=== PATIENT | male | born 1940 | race Caucasian/White ===

== ENCOUNTER → 2023-09-18 12:34 | Outpatient (CLI) | payer MEDICARE, SELFPAY ==
--- NOTE | 2023-09-18 12:42 | DI.ECHO.S_ITS ---
[facility] +---------+ [facility] : : [address] : : [place] : : [id number] : : Phone: [phone] Echocardiogram Report + + :Name: VALENTINE SAAB Study Date: 09/18/2023 Height: 73 in : :Hospital ReadingLocation: Weight: 177 lb : : Gender: Male BSA: 2.0 m2 : :: 1940 Age: 83 yrs BP: 126/75 mmHg: :Reason For Study: ATHEROSCLEROTIC HEART DISEASE : :Ordering Physician: JORDYN BOWENS Performed By: Huma Chavis : :Referring: JORDYN BOWENS : + + Interpretation Summary 1. The left ventricular contractility is normal. Estimated ejection fraction is greater than 55%. There is a small area of hypokinesis in the distal inferior segment. Grade 1 diastolic dysfunction present. No LVH. 2. The right ventricular contractility is normal. 3. Mild left atrial enlargement present. All other cardiac chambers are of normal size. 4. There is moderate fibrocalcific changes noted in the noncoronary cusp of the aortic valve with no significant insufficiency nor stenosis present. 5. There is mild tricuspid regurgitation present. Estimated pulmonary systolic artery pressure is approximately 41 to 45 mmHg. 6. Mild pulmonic insufficiency present 7. No obvious intracardiac shunts noted. 8. No obvious intracardiac masses nor thrombi appreciated. 9. No hemodynamically significant pericardial effusion identified. Conclusion: Normal biventricular systolic function with grade 1 diastolic dysfunction. Mild pulmonary hypertension present most likely due to diastolic dysfunction. Procedure: A two-dimensional transthoracic echocardiogram with color flow and Doppler was performed. The study quality was technically adequate. There is no prior echocardiogram noted for this patient. The patient was in sinus bradycardia with heart rates between 51-55 bpm during the exam. Left Ventricle: The left ventricle is normal in size and wall thickness. There are regional wall motion abnormalities as specified. Diastolic parameters suggest a relaxation abnormality of the left ventricle, consistent with probable normal filling pressures. Right Ventricle: The right ventricle is normal in size and function. Atria: The left atrium is mildly dilated. Right atrial size is normal. There is no Doppler evidence for an interatrial shunt. Mitral Valve: The mitral valve leaflets appear mildly thickened, but open well. There is trace mitral regurgitation. Aortic Valve: There is discrete nodular thickening of the non- coronary cusp. The aortic valve is mildly calcified. There is mild aortic valve sclerosis. There is no aortic valve stenosis. No aortic regurgitation is present. Tricuspid Valve: The tricuspid valve leaflets are thin and pliable. There is mild tricuspid regurgitation. Right ventricular systolic pressure is estimated to be 31 mmHg plus the clinically estimated CVP which cannot be estimated on this exam. Pulmonic Valve: The pulmonic valve leaflets are thin and pliable; valve motion is normal. There is mild pulmonic regurgitation. Great Vessels: The aortic root is normal size. The ascending aorta is normal in size. The inferior vena cava was not well visualized. Pericardium/ Pleura There is no pericardial effusion. There is no pleural effusion. MMode/2D Measurements & Calculations LVIDd: 5.1 cm LVOT diam: 2.1 cm LVIDs: 3.8 cm Ao root diam: 3.7 cm FS: 26.0 % asc Aorta Diam: 3.3 cm IVSd: 0.85 cm Ao Arch Diam (Prox Trans): 2.7 cm LVPWd: 0.89 cm LV rm. diameter/BSA (cm/m^2): 2.5 LV sys. diameter/BSA (cm/m^2): 1.9 LA A2 area: 22.9 cm2 RA long axis: 5.2 cm LA A4 area: 18.2 cm2 RA area: 15.4 cm2 LA length (vol): 5.1 cm RA vol: 38.5 ml LA vol: 69.6 ml RA : 18.8 ml/m2 LA vol index: 34.1 ml/m2 RVD1 (basal): 4.0 cm TAPSE: 1.9 cm Doppler Measurements & Calculations Ao V2 max: 142.2 cm/sec LVOT Max Cheo: 72.6 cm/sec Ao V2 mean: 101.6 cm/sec LV V1 max P.1 mmHg Ao max P.1 mmHg LV V1 VTI: 18.5 cm Ao mean P.5 mmHg REGLA(I,D): 2.2 cm2 Ao V2 VTI: 30.2 cm REGLA(V,D): 1.8 cm2 sev ratio: 0.61 REGLA indexed to BSA (cm^2/m^2): 1.1 MV E max cheo: 46.9 cm/sec TR max cheo: 280.1 cm/sec MV A max cheo: 56.8 cm/sec TR max P.4 mmHg MV E/A: 0.83 PA V2 max: 98.0 cm/sec Med Peak E' Cheo: 5.7 cm/sec PA V2 mean: 68.7 cm/sec E/E' med: 8.3 PA mean P.1 mmHg Lat Peak E' Cheo: 7.4 cm/sec PA pr(Accel): 36.2 mmHg E/E' lat: 6.4 E/e' average: 7.3 MV dec time: 0.48 sec SV(NICOLEOT): 65.3 ml Reading Physician:
== END ==
PROVIDERS: Referring Provider Internal Medicine; Visit Provider Internal Medicine
DX: I25.10 Atherosclerotic heart disease of native coronary artery without angina pectoris (principal); I08.2 Rheumatic disorders of both aortic and tricuspid valves; I27.20 Pulmonary hypertension, unspecified
CPT/HCPCS: 93306

== ENCOUNTER 2024-10-07 15:42 | Emergency (ER) | payer MEDICARE, SELFPAY ==
[2024-10-07] VITALS (25 sets, daily range): BP systolic 114–199; BP diastolic 68–95; PULSE 32–75; RESP 18–24; TEMP 36.6; O2SAT 95–100
--- NOTE | 2024-10-07 15:50 | EKG_ITS ---
[facility] [id number] [place] [id number] Test Date: 2024-10-07 Pat Name: Lewis Pearl Department: Room: Gender: Male [employer] N[employer]: : 1940 Requested By: Order Number: [id number] Reading MD: Herb Sanchez MD Measurements Intervals [place] Rate: 59 P: 40 MT: 140 QRS: -47 QRSD: 108 T: 46 QT: 450 QTc: 445 Interpretive Statements Sinus bradycardia with frequent premature ventricular complexes in a pattern of bigeminy Left anterior fascicular block Minimal voltage criteria for LVH, may be normal variant ( R in aVL ) Cannot rule out Anterior infarct , age undetermined NO PRIOR TRACING Electronically Signed On 10-07-2024 16:51:45 PDT by Herb Sanchez MD
--- NOTE | 2024-10-07 15:50 | DI.CT.S_ITS ---
PROCEDURE: CT ANGIO HEAD AND NECK INDICATIONS: Right-sided weakness TECHNIQUE: After the administration of intravenous contrast, 1 mm thick sections acquired from the aortic arch through the [place] of [place]. 3-dimensional pzdwymx-biyqnuqqq-uphjbpwhlr (MIP) and/or volume rendering reformats were acquired of the central intracranial vasculature and neck separately. For radiation dose reduction, the following was used: automated exposure control, adjustment of mA and/or kV according to patient size. COMPARISON: [facility], CT, CT STROKE, 10/07/2024, 15:53. FINDINGS: Image quality: Diagnostic. Cerebral CT Angiogram: Internal carotid arteries: No acute findings. Intracranial ICA are patent with no significant stenosis. No occlusion. No aneurysm. Anterior cerebral arteries: Unremarkable. No significant stenosis. No occlusion. No aneurysm. Middle cerebral arteries: Unremarkable. No significant stenosis. No occlusion. No aneurysm. Posterior cerebral arteries: Unremarkable. No significant stenosis. No occlusion. No aneurysm. Basilar artery: Unremarkable. No significant stenosis. No occlusion. No aneurysm. Vertebral arteries: Unremarkable as visualized. Dural venous sinuses: Unremarkable given phase of enhancement. Other: Arterial phase appearance of the brain parenchyma is unremarkable. Neck CT Angiogram: Internal carotid arteries: Approximately 50% proximal left internal carotid artery stenosis secondary to a combination of hard and soft plaque. Less than 50% proximal right internal carotid artery stenosis secondary to hard plaque. Common carotid arteries: Unremarkable. No significant stenosis. No dissection or occlusion. External carotid arteries: Unremarkable. No occlusion. Vertebral arteries: Unremarkable. No significant stenosis. No dissection or occlusion. Aortic Arch and Mediastinum: Partially visualized aortic arch unremarkable without evidence of aneurysm. Origins of the great vessels unremarkable. Other: Arterial phase soft tissues of the neck and chest are unremarkable. IMPRESSION: No significant intracranial arterial abnormality is seen. Approximately 50% proximal left internal carotid artery stenosis secondary to a combination of hard and soft plaque. Any quantitative measurements of stenosis were performed using NASCET criteria. Dictated by: Eric Cameron M.D. on 10/07/2024 at 16:27 Approved by: Eric Cameron M.D. on 10/07/2024 at 16:30
--- NOTE | 2024-10-07 15:50 | DI.CT.S_ITS ---
PROCEDURE: CT STROKE INDICATIONS: Right-sided weakness TECHNIQUE: Noncontrast 4.5 mm thick angled axial sections acquired from the foramen magnum to the vertex, with coronal reformats. For radiation dose reduction, the following was used: automated exposure control, adjustment of mA and/or kV according to patient size. COMPARISON: None. FINDINGS: Image quality: Diagnostic. CSF spaces: Basal cisterns are patent. No extra-axial fluid collections. The ventricles are symmetric in size and shape. Brain: No intracranial bleeds or mass effect. There is cerebral volume loss, with resultant ventricular and sulcal prominence. There are periventricular and deep white matter chronic small vessel ischemic changes. There is intracranial internal carotid artery atherosclerosis. Skull and face: Calvarium and visualized facial bones appear intact, without suspicious lesions. Sinuses: Visualized sinuses and mastoids are clear. IMPRESSION: No acute intracranial pathology. Comment: Findings were discussed with Dr. Wu on 10/07/2024 at 1612 hours This study fulfills neurological imaging criteria for inclusion or exclusion of acute stroke therapies based on available published neurological guidelines. Dictated by: Eric Cameron M.D. on 10/07/2024 at 16:10 Approved by: Eric Cameron M.D. on 10/07/2024 at 16:12
--- NOTE | 2024-10-07 16:04 | ED.NEUROSD ---
HPI - Neuro Symptoms/Deficit General Chief Complaint: Neuro Symptoms/Deficit Stated Complaint: POSSIBLE STROKE Time Seen by Provider: 10/07/24 15:49 Source: patient and family Mode of arrival: Wheelchair History of Present Illness HPI Narrative: Patient brought in by from home for slurred speech right-sided weakness right facial droop. Last well known 3:15 p.m., less than 1 hour ago. Patient denies any headache. Patient is awake alert oriented x4. Patient does have right facial droop and right arm weakness. Patient was working in the [employer] prior to arrival. On Anticoagulants: No Related Data Allergies Allergy/AdvReac Type Severity Reaction Status Date / Time No Known Drug Allergies Allergy Verified 10/07/24 16:04 Review of Systems Review of Systems Narrative: GENERAL: Negative chills, fatigue, malaise, fever, sweats. HEENT: Negative sinus pain, ear pain, sore throat RESPIRATORY: Negative dyspnea, cough CARDIOVASCULAR: Negative chest pain, palpitations GASTROINTESTINAL: Negative vomiting, nausea, abdominal pain : Negative dysuria, frequency, hematuria MUSCULOSKELETAL: Negative muscle or bony pain SKIN: Negative rash, skin lesions NEUROLOGIC: Positive facial droop slurred speech and weakness, numbness ROS Unobtainable: All systems reviewed & are unremarkable except as noted in HPI and below Hematologic/Lymphatic On Anticoagulants: No Exam Narrative Exam Narrative: GENERAL: in no distress, not toxic not dyspneic HEAD: Normocephalic. EYES: Pupils equal round ENT: Mucous membranes moist. NECK: Trachea midline. CARDIOVASCULAR: Regular rate and rhythm RESPIRATORY: Clear to auscultation. Breath sounds equal bilaterally. No wheezes, rales, or rhonchi. GASTROINTESTINAL: Abdomen soft, non-tender EXTREMITIES: No gross deformities. BACK: No flank tenderness. NEURO: AOx4. 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 Right arm falls to bed without effort. No right leg drift.. Light touch intact to bilateral face hands and legs SKIN: Warm and dry PSYCH: Not anxious, is cooperative Initial Vital Signs Initial Vital Signs: Vital Signs Temperature 97.9 F 10/07/24 15:49 Pulse Rate 75 10/07/24 15:49 Respiratory Rate 20 10/07/24 15:49 Pulse Oximetry 96 10/07/24 15:49 Scores NIH Stroke Scale Level of Conciousness: Alert, keenly responsive Ask month/age: Answers both questions correctly. Open/close eyes, close hand: Performs both tasks correctly Best gaze horizontal: Normal Visual stephenson: No visual loss Facial palsy: Partial paralysis, total or near total paralysis of lower face Left arm drift: No drift for full 10 sec Right arm drift: No effort against gravity Left leg drift: No drift for full 5 sec Right leg drift: No drift for full 5 sec Limb ataxia: Present in one limb Sensory on face/arms/legs: Normal, no sensory loss Best language: Mild to moderate, slurs some words Dysarthria: Mild to mod,some slurring Extinction or inattention: No abnormality Total NIH Stroke scale score: 8 Course Orders Ordered: Discontinued Medications Labetalol HCl (Labetalol 20 Mg/4 Ml Syringe) 10 mg IV NOW ONE Stop: 10/07/24 16:45 Last Admin: 10/07/24 18:14 Dose: Not Given Documented By: OSKAR Tenecteplase (Tenecteplase 50 Mg Vial) 20 mg 0.25 mg/kg (20 mg) IV NOW ONE Stop: 10/07/24 16:37 Last Admin: 10/07/24 16:52 Dose: 20 mg Documented By: OSKAR Co-signed By: LETTY Vital Signs Vital signs: Vital Signs - 8 hr 10/07/24 15:49 10/07/24 15:50 10/07/24 15:50 Temperature 97.9 F Pulse Rate 75 60 Respiratory Rate 20 18 Blood Pressure 185/84 H Pulse Oximetry 96 96 Oxygen Delivery Method 10/07/24 15:54 10/07/24 16:01 10/07/24 16:30 Temperature Pulse Rate 61 32 L 61 Respiratory Rate 20 Blood Pressure 185/84 H Pulse Oximetry 98 97 97 Oxygen Delivery Method Room Air 10/07/24 16:40 10/07/24 16:40 10/07/24 16:48 Temperature Pulse Rate 63 62 Respiratory Rate 24 Blood Pressure 199/70 H Pulse Oximetry 99 95 Oxygen Delivery Method 10/07/24 16:48 10/07/24 16:50 10/07/24 16:50 Temperature Pulse Rate 62 Respiratory Rate 23 Blood Pressure 161/72 H 160/74 H Pulse Oximetry 96 Oxygen Delivery Method 10/07/24 16:55 10/07/24 16:55 10/07/24 17:00 Temperature Pulse Rate 61 62 Respiratory Rate Blood Pressure 152/70 H Pulse Oximetry 97 97 Oxygen Delivery Method 10/07/24 17:01 10/07/24 17:01 10/07/24 17:06 Temperature Pulse Rate 64 62 Respiratory Rate 20 Blood Pressure 158/72 H Pulse Oximetry 99 99 Oxygen Delivery Method 10/07/24 17:06 Temperature Pulse Rate Respiratory Rate Blood Pressure 165/75 H Pulse Oximetry Oxygen Delivery Method MDM - Neuro Symptoms/Deficit Lab Data 10/07/24 15:52 10/07/24 15:52 Labs: Lab Results 10/07/24 10/07/24 10/07/24 Range/Units 15:49 15:52 17:59 WBC 8.7 (4.5-11.0) X10^3/uL RBC 5.34 (4.5-5.9) X10^6/uL Hgb 16.2 (13.5-17.5) g/dL Hct 47.6 (41-53) % MCV 89.2 (80-100) fL MCH 30.4 (26-34) PG MCHC 34.0 (30-36) % RDW 13.9 (11.6-14.8) % Plt Count 212 (150-400) X10^3/uL Neut % (Auto) 68.0 (50-75) % Lymph % (Auto) 21.0 L (25-40) % [place] % (Auto) 8.4 (3-14) % Eos % (Auto) 1.9 L (2-4) % Baso % (Auto) 0.7 (0-2) % Neut # (Auto) 5900 (8307-0728) /uL Lymph # (Auto) 1800 (7205-9050) /uL [place] # (Auto) 700 (0-900) /uL Eos # (Auto) 200 (0-450) /uL Baso # (Auto) 100 (0-100) /uL PT 11.5 (9.4-12.5) SECONDS INR 1.0 (0.9-1.3) APTT 30 (25.1-36.5) SECONDS Sodium 138 (137-145) mmol/L Potassium 4.2 (3.4-5.1) mmol/L Chloride 109 H (98-107) mmol/L Carbon Dioxide 21 L (22-32) mmol/L BUN 16 (9-20) mg/dL Creatinine 1.14 (0.66-1.25) mg/dL Estimated GFR > 60 (>60) mL/min BUN/Creatinine Ratio 14.0 (6-22) Glucose 94 (70-99) mg/dL POC Whole Bld Glucose 104 H (70-99) mg/dL Calcium 9.3 (8.4-10.2) mg/dL Total Bilirubin 1.4 H (0.2-1.3) mg/dL AST 39 (17-59) IU/L ALT 28 (<50) IU/L Alkaline Phosphatase 63 (38-126) U/L Total Creatine Kinase 226 H (55-170) U/L Troponin I < 0.012 (0.01-0.034) ng/mL Total Protein 7.0 (6.3-8.2) g/dL Albumin 4.2 (3.5-5.0) g/dL Globulin 2.8 (1.7-4.1) g/dL Albumin/Globulin Ratio 1.5 (1.0-2.8) Urine Color Yellow Urine Appearance Clear Urine pH 7.0 (4.5-8.0) Ur Specific [place] <=1.005 (1.000-1.035) Urine Protein Negative (Negative) Urine Glucose (UA) Negative (Negative) g/dL Urine Ketones Trace H (NEGATIVE) Urine Occult Blood Negative (Negative) Urine Nitrate Negative (Negative) Urine Bilirubin Negative (NEGATIVE) Urine Urobilinogen 1.0 (0.2) E.U./dL Ur Leukocyte Esterase Negative (NEGATIVE) Urine RBC None seen (0-5/HPF) Urine WBC None seen (0-5/HPF) Ur Squamous Epith Cells 0-1 /hpf (0-5/HPF) Urine Bacteria None seen (None) Ur Culture Indicated? Cult not indicated Vol Urine Centrifuged 10ml (spun) U Opiates 300ng/mL cut Negative (Negative) Ur Oxycodone Screen Negative (Negative) Urine Methadone Screen Negative (Negative) Ur Barbiturates Screen Negative (Negative) U Tricyclic Antidepress Negative (Negative) Ur Phencyclidine Scrn Negative (Negative) Ur Amphetamines Screen Negative (Negative) U Methamphetamines Scrn Negative (Negative) Ur MDMA Scrn (Ecstasy) Negative (Negative) U Benzodiazepines Scrn Negative (Negative) Urine Cocaine Screen Negative (Negative) U Marijuana (THC) Screen Negative (Negative) Urine Specific [place] (Normal) Ur Creatinine (Normal) 10/07/24 Range/Units 17:59 WBC (4.5-11.0) X10^3/uL RBC (4.5-5.9) X10^6/uL Hgb (13.5-17.5) g/dL Hct (41-53) % MCV (80-100) fL MCH (26-34) PG MCHC (30-36) % RDW (11.6-14.8) % Plt Count (150-400) X10^3/uL Neut % (Auto) (50-75) % Lymph % (Auto) (25-40) % [place] % (Auto) (3-14) % Eos % (Auto) (2-4) % Baso % (Auto) (0-2) % Neut # (Auto) (4345-5369) /uL Lymph # (Auto) (1359-9219) /uL [place] # (Auto) (0-900) /uL Eos # (Auto) (0-450) /uL Baso # (Auto) (0-100) /uL PT (9.4-12.5) SECONDS INR (0.9-1.3) APTT (25.1-36.5) SECONDS Sodium (137-145) mmol/L Potassium (3.4-5.1) mmol/L Chloride (98-107) mmol/L Carbon Dioxide (22-32) mmol/L BUN (9-20) mg/dL Creatinine (0.66-1.25) mg/dL Estimated GFR (>60) mL/min BUN/Creatinine Ratio (6-22) Glucose (70-99) mg/dL POC Whole Bld Glucose (70-99) mg/dL Calcium (8.4-10.2) mg/dL Total Bilirubin (0.2-1.3) mg/dL AST (17-59) IU/L ALT (<50) IU/L Alkaline Phosphatase (38-126) U/L Total Creatine Kinase (55-170) U/L Troponin I (0.01-0.034) ng/mL Total Protein (6.3-8.2) g/dL Albumin (3.5-5.0) g/dL Globulin (1.7-4.1) g/dL Albumin/Globulin Ratio (1.0-2.8) Urine Color Urine Appearance Urine pH Normal (4.5-8.0) Ur Specific [place] (1.000-1.035) Urine Protein (Negative) Urine Glucose (UA) (Negative) g/dL Urine Ketones (NEGATIVE) Urine Occult Blood (Negative) Urine Nitrate (Negative) Urine Bilirubin (NEGATIVE) Urine Urobilinogen (0.2) E.U./dL Ur Leukocyte Esterase (NEGATIVE) Urine RBC (0-5/HPF) Urine WBC (0-5/HPF) Ur Squamous Epith Cells (0-5/HPF) Urine Bacteria (None) Ur Culture Indicated? Vol Urine Centrifuged U Opiates 300ng/mL cut (Negative) Ur Oxycodone Screen (Negative) Urine Methadone Screen (Negative) Ur Barbiturates Screen (Negative) U Tricyclic Antidepress (Negative) Ur Phencyclidine Scrn (Negative) Ur Amphetamines Screen (Negative) U Methamphetamines Scrn (Negative) Ur MDMA Scrn (Ecstasy) (Negative) U Benzodiazepines Scrn (Negative) Urine Cocaine Screen (Negative) U Marijuana (THC) Screen (Negative) Urine Specific [place] Normal (Normal) Ur Creatinine Normal (Normal) Imaging Data CT scan - head: Radiologist's Impression: [place] [address] CT Scan Report Signed Patient: Lewis Pearl MR#: [id number] : 1940 Acct:[id number] Age/Sex: 84 / M Date of Service: 10/07/24 Loc: ED Accession Number: [id number] Procedure: CT Stroke Ordering Provider: Young Wu MD PROCEDURE: CT STROKE INDICATIONS: Right-sided weakness TECHNIQUE: Noncontrast 4.5 mm thick angled axial sections acquired from the foramen magnum to the vertex, with coronal reformats. For radiation dose reduction, the following was used: automated exposure control, adjustment of mA and/or kV according to patient size. COMPARISON: None. FINDINGS: Image quality: Diagnostic. CSF spaces: Basal cisterns are patent. No extra-axial fluid collections. The ventricles are symmetric in size and shape. Brain: No intracranial bleeds or mass effect. There is cerebral volume loss, with resultant ventricular and sulcal prominence. There are periventricular and deep white matter chronic small vessel ischemic changes. There is intracranial internal carotid artery atherosclerosis. Skull and face: Calvarium and visualized facial bones appear intact, without suspicious lesions. Sinuses: Visualized sinuses and mastoids are clear. IMPRESSION: No acute intracranial pathology. Comment: Findings were discussed with Dr. Wu on 10/07/2024 at 1612 hours This study fulfills neurological imaging criteria for inclusion or exclusion of acute stroke therapies based on available published neurological guidelines. Dictated by: Eric Cameron M.D. on 10/07/2024 at 16:10 Approved by: Eric Cameron M.D. on 10/07/2024 at 16:12 CTA - brain/neck: Radiologist's Impression: [address] [address] [address] Scan Report Signed Patient: Lewis Pearl MR#: [id number] : 1940 Acct:[id number] Age/Sex: 84 / M Date of Service: 10/07/24 Loc: ED Accession Number: [id number] Procedure: CT angio head and neck Ordering Provider: Young Wu MD PROCEDURE: CT ANGIO HEAD AND NECK INDICATIONS: Right-sided weakness TECHNIQUE: After the administration of intravenous contrast, 1 mm thick sections acquired from the aortic arch through the [place] of [place]. 3-dimensional [id number] (MIP) and/or volume rendering reformats were acquired of the central intracranial vasculature and neck separately. For radiation dose reduction, the following was used: automated exposure control, adjustment of mA and/or kV according to patient size. COMPARISON: [facility], CT, CT STROKE, 10/07/2024, 15:53. FINDINGS: Image quality: Diagnostic. Cerebral CT Angiogram: Internal carotid arteries: No acute findings. Intracranial ICA are patent with no significant stenosis. No occlusion. No aneurysm. Anterior cerebral arteries: Unremarkable. No significant stenosis. No occlusion. No aneurysm. Middle cerebral arteries: Unremarkable. No significant stenosis. No occlusion. No aneurysm. Posterior cerebral arteries: Unremarkable. No significant stenosis. No occlusion. No aneurysm. Basilar artery: Unremarkable. No significant stenosis. No occlusion. No aneurysm. Vertebral arteries: Unremarkable as visualized. Dural venous sinuses: Unremarkable given phase of enhancement. Other: Arterial phase appearance of the brain parenchyma is unremarkable. Neck CT Angiogram: Internal carotid arteries: Approximately 50% proximal left internal carotid artery stenosis secondary to a combination of hard and soft plaque. Less than 50% proximal right internal carotid artery stenosis secondary to hard plaque. Common carotid arteries: Unremarkable. No significant stenosis. No dissection or occlusion. External carotid arteries: Unremarkable. No occlusion. Vertebral arteries: Unremarkable. No significant stenosis. No dissection or occlusion. Aortic Arch and Mediastinum: Partially visualized aortic arch unremarkable without evidence of aneurysm. Origins of the great vessels unremarkable. Other: Arterial phase soft tissues of the neck and chest are unremarkable. IMPRESSION: No significant intracranial arterial abnormality is seen. Approximately 50% proximal left internal carotid artery stenosis secondary to a combination of hard and soft plaque. Any quantitative measurements of stenosis were performed using NASCET criteria. Dictated by: Eric Cameron M.D. on 10/07/2024 at 16:27 Approved by: Eric Cameron M.D. on 10/07/2024 at 16:30 [facility] Narrative Medical decision making narrative: Patient brought in by from home for slurred speech right-sided weakness right facial droop. Last well known 3:15 p.m., less than 1 hour ago. Patient denies any headache. Patient is awake alert oriented x4. Patient does have right facial droop and right arm weakness. Patient was working in the [employer] prior to arrival. After history and exam, CT head CT angiogram head and neck neurology consult CBC CMP EKG troponin [facility] Medical records reviewed: No recent visit for this complaint Differential considered: Includes but not limited to TIA stroke Lab Test results independently reviewed as above. Pertinent findings: WBC 8.7 hemoglobin 16.2, INR 1.0 sodium 138 potassium 4.2 BUN 16 creatinine 1.14 Independently reviewed EKG sinus bradycardia rate 59 Imaging studies independently reviewed: CT head no acute finding Consultations: 4:[address] Cameron radiologist, CT head without contrast no acute finding. 4:19 p.m.. Spoke with [facility] tele stroke Neurology Dr. Israel, he is going to contact his attending and they will interview patient remotely with teleconference to determine for TNK 4:[address] Israel is on tele conference with patient through remotely/video, with his attending 4:[address] Israel and attending neurologist CT angiogram results 5:[address] Israel has accepted patient is to [facility] for transfer. Re-evaluations: 4:47 p.m.. Awaiting for labetalol to lower blood pressure. It has bike just prior to administration of TNK. 5:35 p.m.. Patient is doing much better. No facial droop has clear speech but still has right arm weakness. No headache. Discussion: Appropriate for transfer to higher level of care after patient received TNK as protocol. Diagnosis: Acute stroke Critical Care Time Critical Care Time Attestation: Critical Care Time 35 minutes: Critical care time is separate from other billable procedures. This critical care time includes consultation with family and other consulting doctors, review of records, and interpretation of data from labs, EKGs, imaging, etc. Discharge Plan Departure Patient Disposition: [facility] Clinical Impression: Cerebrovascular accident Qualifiers: CVA mechanism: unspecified Qualified Code(s): I63.9 - Cerebral infarction, unspecified
[2024-10-07 16:05] LABS: Add Manual Diff / Slide Review NO; Hematocrit 47.6 % (41-53); Hemoglobin 16.2 g/dL (13.5-17.5); Lymphocytes Absolute Auto 1800 /uL (1100-4500); Mean Corpuscular HGB Conc 34.0 % (30-36); Mean Corpuscular Hemoglobin 30.4 PG (26-34); Mean Corpuscular Volume 89.2 fL (80-100); Platelet Count 212 X10^3/uL (150-400)
[2024-10-07 16:15] LABS: INR 1.0 (0.9-1.3); Prothrombin Time 11.5 SECONDS (9.4-12.5)
[2024-10-07 16:18] LABS: PTT Partial Thromboplastin Tim 30 SECONDS (25.1-36.5)
[2024-10-07 16:19] LABS: Alanine Aminotransferase 28 IU/L (<50); Albumin 4.2 g/dL (3.5-5.0); Albumin Globulin Ratio 1.5 (1.0-2.8); Alkaline Phosphatase 63 U/L (38-126); Blood Urea Nitrogen 16 mg/dL (9-20); Calcium 9.3 mg/dL (8.4-10.2); Carbon Dioxide 21 mmol/L (22-32); Chloride 109 mmol/L (98-107); Creatine Kinase 226 U/L (55-170); Estimated Glomerular Filt Rate > 60 mL/min (>60); Globulin 2.8 g/dL (1.7-4.1); Glucose 94 mg/dL (70-99); HEMOLYSIS 27 (0-50); Potassium 4.2 mmol/L (3.4-5.1); Sodium 138 mmol/L (137-145); Total Protein 7.0 g/dL (6.3-8.2)
[2024-10-07 16:30] LABS: Troponin I < 0.012 ng/mL (0.01-0.034)
[2024-10-07] MEDS: TENECTEPLASE 50 MG VIAL 20 MG IV (16:52)
[2024-10-07 18:13] LABS: UR Morphine/Opiate cutoff 300 Negative (Negative); Ur Specific Gravity Normal (Normal); Urine MDMA Negative (Negative); Urine Methamphetamines Negative (Negative); Urine Tetrahydrocannabinol Negative (Negative); Urine Tricyclic Antidepressant Negative (Negative)
[2024-10-07 18:20] LABS: Appearance Urine UA CLEAR; Bilirubin Urine UA NEGATIVE (NEGATIVE); Color Urine UA YELLOW; Glucose Urine UA NEGATIVE (Negative); Ketones Urine UA TRACE (NEGATIVE); Leukocyte Esterase Urine UA NEGATIVE (NEGATIVE); Nitrite Urine UA NEGATIVE (Negative); Occult Blood Urine UA NEGATIVE (Negative); Protein Urine UA NEGATIVE (Negative); Specific Gravity Urine UA <=1.005 (1.000-1.035); Urobilinogen Urine UA 1.0 E.U./dL (0.2); pH Urine UA 7.0 (4.5-8.0)
[2024-10-07 18:29] LABS: Culture Indicated Urine Cult Not Indicated
== END 2024-10-07 19:30 | disposition short-term general hospital (02) ==
PROVIDERS: Emergency Provider Emergency Medicine
DX: I63.9 Cerebral infarction, unspecified (principal); R47.81 Slurred speech; R29.708 NIHSS score 8; R00.1 Bradycardia, unspecified
CPT/HCPCS: 36415; 70450; 70496; 70498; 80053; 80305; 81001; 82550; 82962; 84484; 85025; 85610; 85730; 93005; 93010; 96374; 99285; 99291; J3101; Q9967